=== PATIENT | male | born 1960 | race Caucasian/White ===

== ENCOUNTER → 2018-12-26 | Outpatient (CLI) | payer OTHER ==
[~2018-12-26] MED LIST: ACET325T14 PO; AMLO10TA8 PO; ASPI-515 PO; HYDR12.517 PO; LISI-167 PO; NITR0.4T41 SL; TAMS-11 PO
== END | disposition home or self-care (01) ==
LOC: RAD 14:53
PROVIDERS: ATTEND Internal Medicine Cardiovascular Disease
DX: R07.9 Chest pain, unspecified (principal); R00.2 Palpitations; I10 Essential (primary) hypertension
CPT/HCPCS: 71046

== ENCOUNTER 2020-07-28 05:49 | Day surgery (SDC) | payer OTHER ==
[~2020-07-28] VITALS: Ht 171.4 cm; Wt 79.5 kg
[~2020-07-28 05:49] MED LIST changes: +AMLO-211 PO; -AMLO10TA8 PO; -ASPI-515 PO; +ASPI-963 PO; +METO25TA2 PO; +SILO4CAP3 PO
[2020-07-28 06:26] VITALS: BP 147/99
[2020-07-28] MEDS ORDERED: SODIUM CHLORIDE 0.9% 1,000 ML IV SCH (06:30)
[2020-07-28] MEDS ORDERED: MIDAZOLAM 1 MG/ML, 5ML ONE (08:17)
[2020-07-28] MEDS ORDERED: LIDOCAINE 2%, 20ML ONE (08:17)
[2020-07-28] MEDS ORDERED: FENTANYL PF 100 MCG/2ML ONE (08:18)
[2020-07-28] MEDS ORDERED: ADENOSINE 6 MG/2 ML ONE (08:18)
[2020-07-28] MEDS ORDERED: ISOPROTERENOL 0.2MG/ML, 5ML ONE (08:18)
[2020-07-29] MEDS ORDERED: HYDROCHLOROTHIAZIDE 12.5 MG CAPSULE PO SCH (09:00)
== END 2020-07-28 14:25 | disposition home or self-care (01) ==
LOC: CACL 05:49
PROVIDERS: ATTEND Internal Medicine Cardiovascular Disease
DX: I47.2 Ventricular tachycardia (principal); I10 Essential (primary) hypertension; Z79.899 Other long term (current) drug therapy; Z88.0 Allergy status to penicillin; Z88.8 Allergy status to other drugs, medicaments and biological substances
CPT/HCPCS: 93613; 93621; 93653; 99156; 99157; C1730; C1894; C2630; J2250; J3010; J0153

== ENCOUNTER 2020-10-06 10:49 | Emergency (ER) | payer OTHER ==
[~2020-10-06] VITALS: Ht 170.2 cm; Wt 83.1 kg
[2020-10-06] MEDS ORDERED: ASPIRIN 81 MG TABLET CHEW PO ONE (11:30)
[2020-10-06] MEDS ORDERED: SODIUM CHLORIDE FLUSH 10ML SYR IVF ONE (11:30)
--- NOTE | 2020-10-06 11:30 | NUR ---
PT MEDICATED PER ORDERS. STATES HE ALSO TOOK A BABY ASA AT HOME TODAY. RV'WD POC WITH PT AND . PT DENIES NEEDS AT THIS TIME.
[2020-10-06] MEDS ORDERED: ASPIRIN 81 MG TABLET CHEW ONE ×2 (11:32→11:35)
--- NOTE | 2020-10-06 11:53 | NUR ---
ERP AT BS.
[2020-10-06 11:59] LABS: BASOPHILS % (AUTO) 1 % (0-1); EOSINOPHILS % (AUTO) 2 % (1-7); LYMPHOCYTES % (AUTO) 18 % (22-44); MEAN CORPUSCULAR HEMOGLOBIN 30.8 pg (27.5-34.5); MEAN CORPUSCULAR HGB CONC 33.9 g/dL (33.2-36.2); MEAN PLATELET VOLUME 7.3 fL (7.4-10.4); MONOCYTES % (AUTO) 6 % (2-9); NEUTROPHILS % (AUTO) 74 % (42-75); PLATELET COUNT 283 x10^3/uL (130-400); RED BLOOD COUNT 4.97 x10^6/uL (4.38-5.82); RED CELL DISTRIBUTION WIDTH 13.7 % (9.4-14.8)
[2020-10-06 12:02] LABS: MD NO
[2020-10-06 12:04] LABS: ALBUMIN 4.3 g/dL (3.4-5.0); ANION GAP 8 mmol/L (5-15); CALCIUM 9.4 mg/dL (8.5-10.1); CHLORIDE 106 mmol/L (98-107)
[2020-10-06 12:10] LABS: TROPONIN I < 0.015 ng/mL (0.000-0.045)
[2020-10-06 12:39] VITALS: BP 158/101
[2020-10-06] MEDS ORDERED: LISI-167 PO (12:43)
--- NOTE | 2020-10-06 12:51 | NUR ---
D/C INSTRUCTIONS, MEDS & F/U APPT'S RV'WD WITH PT, HE VERBALIZES UNDERSTANDING. RX GIVEN X1 AND PRINTOUT OF MEDICATION INFORMATION PROVIDED TO PT. INSTRUCTED PT TO RETURN TO ED FOR WORSENING SYMPTOMS. AMBULATED OUT OF ED WITH WITHOUT DIFFICULTY.
== END 2020-10-06 12:44 | disposition home or self-care (01) ==
LOC: ED 12:30
DX: R07.89 Other chest pain (principal); I10 Essential (primary) hypertension
CPT/HCPCS: 36415; 71045; 80048; 82040; 84484; 85025; 93005; 99285

== ENCOUNTER 2021-03-11 14:56 | Emergency (ER) | payer OTHER ==
[~2021-03-11] VITALS: Ht 170.2 cm; Wt 83.0 kg
[2021-03-11 18:34] VITALS: BP 140/95
== END 2021-03-11 18:48 | disposition home or self-care (01) ==
LOC: ED 15:01
DX: R07.2 Precordial pain (principal); R11.0 Nausea; I10 Essential (primary) hypertension; E78.00 Pure hypercholesterolemia, unspecified
CPT/HCPCS: 36415; 71045; 80053; 83735; 84436; 84443; 84484; 85025; 93005; 96374; 96375; 99285; J2270; J2405